=== PATIENT | male | born 1930 | race Caucasian/White ===

== ENCOUNTER 2017-10-08 10:10 | Emergency (ER) | payer MEDICARE ==
[~2017-10-08] VITALS: Ht 175.3 cm; Wt 70.0 kg
[~2017-10-08 10:10] MED LIST: ADLT ASA LOW81 MG PO; ARICEPT10 MG OR; HYDROCHLOROT25 MG OR; LISINOPRIL40 MG PO; MEDDOSEPAK OR; PLAVIX75 MG PO
[2017-10-08] MEDS ORDERED: ZETIA10 MG PO (10:43)
[2017-10-08] MEDS ORDERED: NORVASC5 M1 PO (10:44)
[2017-10-08] MEDS ORDERED: [UNRECOGNIZED DRUG - OTHER] PO (10:45)
[2017-10-08] MEDS ORDERED: BIOTIN5000 MCG PO (10:47)
[2017-10-08] MEDS ORDERED: CLONIDINE0.1 MG PO (10:47)
[2017-10-08] MEDS ORDERED: DONEPEZIL5 MG PO (10:49)
[2017-10-08] MEDS ORDERED: FISH OIL1000 MG PO (10:50)
[2017-10-08 11:44] LABS: HEMATOCRIT 43.1 % (39.0-50.0); HEMOGLOBIN 14.1 g/dl (14.0-18.0); IMMATURE GRANULOCYTES 0.3 % (0.0-1.0); MEAN CELL VOLUME 94.1 fL CALC (80.0-100.0); MEAN CORPUSCULAR HGB 30.8 pG CALC (26.0-32.0); MEAN CORPUSCULAR HGB CONC 32.7 g/L CALC (32.0-36.0); NEUT# 4.37 thou/uL (1.82-7.42); RED BLOOD COUNT 4.58 mill/uL (4.70-6.10); RED CELL DISTRI WIDTH 12.8 % (11.5-15.5)
[2017-10-08] MEDS ORDERED: FERRETTS325 MG PO (11:48)
[2017-10-08] MEDS ORDERED: ISOSORB MONO30 MG PO (11:49)
[2017-10-08] MEDS ORDERED: SLO-NIACIN500 MG PO (11:50)
[2017-10-08] MEDS ORDERED: VITAMIN B-121000 MCG PO (11:51)
[2017-10-08] MEDS ORDERED: CHLORTHALIDONE25 MG PO (11:51)
[2017-10-08] MEDS ORDERED: [UNRECOGNIZED DRUG - OTHER] PO (11:52)
[2017-10-08] MEDS ORDERED: PROSTATE 2.4 PO (11:52)
[2017-10-08] MEDS ORDERED: GLUCOSAMINE CHO1 CA3 PO (11:53)
[2017-10-08 11:57] LABS: ALBUMIN 4.6 g/dL (3.2-5.0); ALKALINE PHOSPHATASE 77 u/l (38-126); AMYLASE 104 u/l (30-110); ANION GAP 18 (6-22 (CALC)); BILIRUBIN, TOTAL 0.4 mg/dL (0.0-1.4); BUN 38 mg/dL (8-23); BUN/CREATININE RATIO 23 (12-20 (CALC)); CALCIUM 10.6 mg/dL (8.4-10.2); CARBON DIOXIDE 23 mmol/l (22-30); CHLORIDE 112 mmol/l (95-108); CREATININE 1.7 mg/dL (0.7-1.3); GFR 38 ML/MIN (>=60 (CALC)); GFR FOR AFR.AMER. 46 ML/MIN (>=60 (CALC)); GLUCOSE 94 mg/dL (82-115); LIPASE 154 u/l (23-300); POTASSIUM 4.5 mmol/l (3.5-5.1); SGOT/AST 25 u/l (19-48); SGPT/ALT 28 u/l (11-66); SODIUM 148 mmol/l (137-146); TOTAL PROTEIN 7.4 g/dL (6.3-8.2)
[2017-10-08 12:09] LABS: MYOGLOBIN 76 ng/mL (0 - 121)
[2017-10-08 12:36] LABS: PROTHROMBIN TIME 11.2 SECONDS (9.0-12.5)
[2017-10-08 13:04] LABS: URINE BILIRUBIN - DIPSTICK NEGATIVE (NEGATIVE); URINE BLOOD DIPSTICK NEGATIVE (NEGATIVE); URINE CLARITY CLEAR; URINE COLOR YELLOW; URINE GLUCOSE - DIPSTICK NEGATIVE (NEGATIVE); URINE KETONE NEGATIVE (NEGATIVE); URINE LEUK ESTERASE NEGATIVE (NEGATIVE); URINE NITRITE - DIPSTICK NEGATIVE (Negative); URINE PROTEIN - DIPSTICK NEGATIVE (NEG-TRACE); URINE SPECIFIC GRAVITY 1.015; URINE UROBILINOGEN - DIPSTICK 0.2 E.U./dL (0.2)
[2017-10-08 13:21] VITALS: BP 156/67
== END 2017-10-08 13:26 | disposition home or self-care (01) ==
LOC: ED 10:10
PROVIDERS: Emergency Medicine
DX: K62.5 Hemorrhage of anus and rectum (principal); I10 Essential (primary) hypertension; H91.90 Unspecified hearing loss, unspecified ear; M35.00 Sjogren syndrome, unspecified; Z86.73 Personal history of transient ischemic attack (TIA), and cerebral infarction without residual deficits; Z79.02 Long term (current) use of antithrombotics/antiplatelets